=== PATIENT | female | born 1995 | race Caucasian/White ===

== ENCOUNTER 2017-08-15 19:05 | Inpatient (IN) | payer OTHER ==
[2017-08-15] VITALS (15 sets, daily range): BP systolic 113–135; BP diastolic 67–89; PULSE 86–110; RESP 18–20
[~2017-08-15] VITALS: Ht 157.5 cm; Wt 73.0 kg
[~2017-08-15 19:05] MED LIST changes: -IBUP-232 PO; -OXYC1TAB63 PO; -PERI PO
--- NOTE | 2017-08-15 19:39 | PD ---
HPI Chief Complaint contractions Date Seen: Aug 15, 2017 Time Seen: 19:38 Travel History International Travel<30 Days: No Contact w/Intl Traveler<30Days: Yes Name of Country Traveled to: STATIONED IN [facility] Known Affected Area: No History of Present Illness HPI 22 yo at 40/0 weeks gestation presenting with contractions. Started around midnight this morning and got progressively worse, causing her to seek care today 11 AM. At the time, she was not making very strong contractions had not progressed to the active phase of labor. She was discharged home with labor precautions. Her contractions had become much closer together increasing in intensity since discharge earlier this morning. She denies leakage of fluid. Endorses movement. Denies vaginal bleeding. History Past Medical History Medical History: Denies Significant Hx Obstetric History Obstetric History Past Surgical History Surgical History: No Previous Surgery Family History Family History: Negative Social History Alcohol Use: No Tobacco Use: No Substance Abuse: No Allergies-Medications (Allergen,Severity, Reaction): Coded Allergies: No Known Allergies (Unverified Adverse Reaction, Unknown, 08/08/17) Home Meds Active Scripts Multi-Vit/Iron-Folic [id number] C (Ferralet) 90-1-0.012-120 mg Tab, 90 CAP PO DAILY for anemia for 60 Days, #60 CAPLET 2 Refills Prov:Saulo Dickerson MD 06/25/17 W/O Vit A W/ Fe Fumar (Citranatal [place]) 27-1-260 Mg Cap, 1 CAP PO DAILY for Nutritional Supplement, #30 CAP 3 Refills Prov:Yadi Jameson CNM [facility] 03/19/17 W/O Vit A W/ Fe Fumar (Citranatal [place]) 27-1-260 Mg Cap, 1 CAP PO DAILY for Nutritional Supplement, #30 CAP 5 Refills Prov:Yadi Jameson CNM [facility] 02/06/17 Review of Systems Except as stated in HPI: all other systems reviewed are Neg Physical Exam Narrative GENERAL: Well-nourished, well-developed patient. SKIN: Warm and dry. HEAD: Normocephalic and atraumatic. EYES: No scleral icterus. No injection or drainage. ENT: No nasal drainage noted. Mucous membranes pink. Airway patent. CARDIOVASCULAR: Regular rate and rhythm without murmurs, gallops, or rubs. RESPIRATORY: Breath sounds equal bilaterally. No accessory muscle use. ABDOMEN/GI: Abdomen soft, non-tender, no rebound, no guarding GENITOURINARY: Cervix: midposition Dilation: 8-9 cm Effacement: 100 Presentation: vertex Membranes: intact; bulging Contractions: every 1-3 mins FHT's: Category: 1 Baseline: 140 Reactive: Y Variability: moderate Decels: N EXTREMITIES: No cyanosis or edema. NEUROLOGICAL: Awake and alert. Motor and sensory grossly within normal limits. Normal speech. Data Data Vital Signs Reviewed: Yes Orders Orders Ob (2e) Additional Admit Info (08/15/17 19:31) Admit To Inpatient (08/15/17 ) Code Status (08/15/17 19:36) Vital Signs (Adult) .Per protocol (08/15/17 19:36) Activity Oob Ad Ellyn (08/15/17 19:36) Heart (08/15/17 19:36) Amnioinfusion (08/15/17 19:36) Urinary Catheter Management .ONCE (08/15/17 19:36) Diet Liquid (08/16/17 Breakfast) Lactated Ringer's 1000 Ml Inj (Lr 1000 M (08/15/17 19:36) Lactated Ringer's 1000 Ml Inj (Lr 1000 M (08/15/17 19:36) Sodium Chlorid 0.9% 500 Ml Inj (Ns 500 M (08/15/17 19:45) Sodium Chlor 0.9% 1000 Ml Inj (Ns 1000 M (08/15/17 19:56) Lidocaine 1% Inj (50 Ml) (Xylocaine 1% I (08/15/17 19:45) Citric Acid-Sodium Citrate Liq (Bicitra (08/15/17 19:45) Ondansetron Inj (Zofran Inj) (08/15/17 19:45) Fentanyl Inj (Fentanyl Inj) (08/15/17 19:45) Fentanyl Inj (Fentanyl Inj) (08/15/17 19:45) Complete Blood Count With Diff (08/15/17 19:36) Hold Clot (08/15/17 19:36) Abo/Rh Blood Type (08/15/17 19:36) Urinalysis - C+S If Indicated (08/15/17 19:36) Drug Screen, Random Urine (08/15/17 19:36) Resp Oxygen Non Rebreathe Mask (08/15/17 ) ^ Epidural / Intrathecal Infus (08/15/17 19:36) Oxytocin 30 Units-500ml Premix (Pitocin (08/15/17 19:45) Lidocaine 1% Inj (50 Ml) (Xylocaine 1% I (08/15/17 19:45) Light Mineral Oil (Muri-Lube Oil) (08/15/17 19:45) Inpatient Certification (08/15/17 ) Specimen To Be Collected PRN (08/15/17 19:36) Specimen To Be Collected PRN (08/15/17 19:36) Group B Strep: Negative MDM Medical Record Reviewed: Yes Narrative Course / MDM [id number] at 40/0 weeks gestation presenting in labor #1 IUP Category 1 tracing, reassuring #2 active labor 8-9 cm with regular contractions - Admit to labor and delivery - Routine labor care - Continue to monitor #3 GBS negative No antibiotic ppx needed Otto Dwyer MD Aug 15, 2017 19:39
[2017-08-15] MEDS ORDERED: LIDOCAINE HCL 1% 50 ML VIAL I-DERMAL PRN (19:45)
[2017-08-15] MEDS ORDERED: SODIUM CHLORID 0.9% 500 ML INJ 500 ML IV PRN (19:45)
[2017-08-15] MEDS ORDERED: ONDANSETRON HCL 4 MG/2 ML VIAL IV PUSH PRN (19:45)
[2017-08-15] MEDS ORDERED: CITRIC ACID-SODIUM CITRATE LIQ 30 ML UDC PO SCH (19:45)
[2017-08-15] MEDS ORDERED: LIDOCAINE HCL 1% 50 ML VIAL INFIL PRN (19:45)
[2017-08-15] MEDS ORDERED: MINERAL OIL 10 ML VIAL TOPICAL PRN (19:45)
[2017-08-15] MEDS ORDERED: OXYTOCIN 30 UNITS-500ML PREMIX 500 ML IV ONE (19:45)
--- NOTE | 2017-08-15 19:51 | HHI.HP ---
History & Physical H&P HPI HPI Chief Complaint contractions Date Seen: Aug 15, 2017 Time Seen: 19:38 Travel History International Travel<30 Days: No Contact w/Intl Traveler<30Days: Yes Name of Country Traveled to: STATIONED IN [facility] Known Affected Area: No History of Present Illness HPI 22 yo at 40/0 weeks gestation presenting with contractions. Started around midnight this morning and got progressively worse, causing her to seek care today 11 AM. At the time, she was not making very strong contractions had not progressed to the active phase of labor. She was discharged home with labor precautions. Her contractions had become much closer together increasing in intensity since discharge earlier this morning. She denies leakage of fluid. Endorses movement. Denies vaginal bleeding. History (Limited) History Past Medical History Medical History: Denies Significant Hx Obstetric History Obstetric History Past Surgical History Surgical History: No Previous Surgery Family History Family History: Negative Social History Alcohol Use: No Tobacco Use: No Substance Abuse: No Allergies-Medications Allergies-Medications (Allergen,Severity, Reaction): Coded Allergies: No Known Allergies (Unverified Adverse Reaction, Unknown, 08/08/17) Home Meds Active Scripts Multi-Vit/Iron-Folic [id number] C (Ferralet) 90-1-0.012-120 mg Tab, 90 CAP PO DAILY for anemia for 60 Days, #60 CAPLET 2 Refills Prov:Saulo Dickerson MD 06/25/17 W/O Vit A W/ Fe Fumar (Citranatal [place]) 27-1-260 Mg Cap, 1 CAP PO DAILY for Nutritional Supplement, #30 CAP 3 Refills Prov:Yadi Jameson CNMP 03/19/17 W/O Vit A W/ Fe Fumar (Citranatal [place]) 27-1-260 Mg Cap, 1 CAP PO DAILY for Nutritional Supplement, #30 CAP 5 Refills Prov:Yadi Jameson CNMP 02/06/17 ROS Review of Systems Except as stated in HPI: all other systems reviewed are Neg Physical Exam Physical Exam Narrative GENERAL: Well-nourished, well-developed patient. SKIN: Warm and dry. HEAD: Normocephalic and atraumatic. EYES: No scleral icterus. No injection or drainage. ENT: No nasal drainage noted. Mucous membranes pink. Airway patent. CARDIOVASCULAR: Regular rate and rhythm without murmurs, gallops, or rubs. RESPIRATORY: Breath sounds equal bilaterally. No accessory muscle use. ABDOMEN/GI: Abdomen soft, non-tender, no rebound, no guarding GENITOURINARY: Cervix: midposition Dilation: 8-9 cm Effacement: 100 Presentation: vertex Membranes: intact; bulging Contractions: every 1-3 mins FHT's: Category: 1 Baseline: 140 Reactive: Y Variability: moderate Decels: N EXTREMITIES: No cyanosis or edema. NEUROLOGICAL: Awake and alert. Motor and sensory grossly within normal limits. Normal speech. Data Data Data Vital Signs Reviewed: Yes Orders Orders Ob (2e) Additional Admit Info (08/15/17 19:31) Admit To Inpatient (08/15/17 ) Code Status (08/15/17 19:36) Vital Signs (Adult) .Per protocol (08/15/17 19:36) Activity Oob Ad Ellyn (08/15/17 19:36) Heart (08/15/17 19:36) Amnioinfusion (08/15/17 19:36) Urinary Catheter Management .ONCE (08/15/17 19:36) Diet Liquid (08/16/17 Breakfast) Lactated Ringer's 1000 Ml Inj (Lr 1000 M (08/15/17 19:36) Lactated Ringer's 1000 Ml Inj (Lr 1000 M (08/15/17 19:36) Sodium Chlorid 0.9% 500 Ml Inj (Ns 500 M (08/15/17 19:45) Sodium Chlor 0.9% 1000 Ml Inj (Ns 1000 M (08/15/17 19:56) Lidocaine 1% Inj (50 Ml) (Xylocaine 1% I (08/15/17 19:45) Citric Acid-Sodium Citrate Liq (Bicitra (08/15/17 19:45) Ondansetron Inj (Zofran Inj) (08/15/17 19:45) Fentanyl Inj (Fentanyl Inj) (08/15/17 19:45) Fentanyl Inj (Fentanyl Inj) (08/15/17 19:45) Complete Blood Count With Diff (08/15/17 19:36) Hold Clot (08/15/17 19:36) Abo/Rh Blood Type (08/15/17 19:36) Urinalysis - C+S If Indicated (08/15/17 19:36) Drug Screen, Random Urine (08/15/17 19:36) Resp Oxygen Non Rebreathe Mask (08/15/17 ) ^ Epidural / Intrathecal Infus (08/15/17 19:36) Oxytocin 30 Units-500ml Premix (Pitocin (08/15/17 19:45) Lidocaine 1% Inj (50 Ml) (Xylocaine 1% I (08/15/17 19:45) Light Mineral Oil (Muri-Lube Oil) (08/15/17 19:45) Inpatient Certification (08/15/17 ) Specimen To Be Collected PRN (08/15/17 19:36) Specimen To Be Collected PRN (08/15/17 19:36) Group B Strep: Negative MDM MDM Medical Record Reviewed: Yes Narrative Course / MDM [id number] at 40/0 weeks gestation presenting in labor #1 IUP Category 1 tracing, reassuring #2 active labor 8-9 cm with regular contractions - Admit to labor and delivery - Routine labor care - Continue to monitor #3 GBS negative No antibiotic ppx needed Otto Dwyer MD Aug 15, 2017 19:51
[2017-08-15] MEDS ORDERED: SODIUM CHLOR 0.9% 1000 ML INJ 1,000 ML IV PRN (19:56)
[2017-08-15 20:05] LABS: BILIRUBIN, URINE NEG (NEG); BLOOD, URINE SMALL (NEG); GLUCOSE,URINE NEG (NEG); KETONE, URINE NEG (NEG); MUCUS URINE FEW /lpf (OCC); NITRITE,URINE NEG (NEG); PH, URINE 7.5 (5.0-8.5); SQUAMOUS EPITHELIAL CELL URINE 3 /hpf (0-5); URINE COLOR YELLOW (YELLW/STRAW); URINE LEUKOCYTE ESTERASE NEG (NEG)
[2017-08-15 20:09] LABS: BASOPHIL % 0.2 % (0.0-2.0); EOSINOPHIL % 0.3 % (0.0-4.0); HEMATOCRIT 37.1 % (35.0-46.0); HEMOGLOBIN 12.3 GM/DL (11.6-15.3); LYMPH % 15.8 % (9.0-44.0); LYMPHOCYTE # 1.4 TH/MM3 (1.0-4.8); MEAN CELL VOLUME 77.4 FL (80.0-100.0); MEAN CORPUSCULAR HEMOGLOBIN 25.6 PG (27.0-34.0); MEAN CORPUSCULAR HGB CONC 33.1 % (32.0-36.0); MEAN PLATELET VOLUME 8.2 FL (7.0-11.0); MONO % 6.9 % (0.0-8.0); MONOCYTE # 0.6 TH/MM3 (0-0.9); NEUT % 76.8 % (16.0-70.0); PLATELET COUNT 181 TH/MM3 (150-450); RED BLOOD COUNT 4.79 MIL/MM3 (4.00-5.30); RED CELL DISTRIBUTION WIDTH 18.3 % (11.6-17.2); WHITE BLOOD COUNT 9.1 TH/MM3 (4.0-11.0)
--- NOTE | 2017-08-15 20:41 | PD.LABORPN ---
Subjective Subjective Patient doing well. Contractions painful. Objective Objective Pelvic Exam: Cervix: midposition Dilatation: 9-10 cm Effacement: 100% Station: -2 Presentation: vertex Membranes: AROM Uterine Contractions: regular every 1-3 mins FHT's: Category: 1 Baseline: 140 Reactive: Y Variability: moderate Decels: N Pt started active labor?: Yes Medical induction of labor?: No Artificial rupture of membrane: Yes Artificial ROM date: Aug 15, 2017 Artifical ROM time: 20:39 Assessment/Plan Assessment and Plan 22 yo at 40/0 weeks in labor AROM performed with clear fluid Continue routine labor care GBS negative Category 1 tracing, reassuring Otto Dwyer MD Aug 15, 2017 20:41
[2017-08-15] MEDS: LACTATED RINGER'S 1000 ML INJ 1,000 ML IV PRN ×2 (22:23→23:57)
[2017-08-15] MEDS: LACTATED RINGER'S 1000 ML INJ 1,000 ML IV SCH (22:23)
[2017-08-15] MEDS ORDERED: fentaNYL 2MCG-BUPIV 0.125% INJ 100 ML ONE (23:25)
[2017-08-16] VITALS (58 sets, daily range): BP systolic 74–140; BP diastolic 34–92; PULSE 88–158; RESP 16–18; TEMP 98.4–100.5; O2SAT 98
[2017-08-16] MEDS ORDERED: NO SYSTEM NARCOTICS PRN
[2017-08-16] MEDS ORDERED: fentaNYL 2MCG-BUPIV 0.125% 100 ML EPIDURAL SCH
[2017-08-16] MEDS ORDERED: DO NOT ADMINISTER ANTICOAGULANTS PRN
[2017-08-16] MEDS ORDERED: ePHEDrine/NS 25 MG/5 ML SYRINGE IV PUSH PRN (00:30)
[2017-08-16] MEDS ORDERED: OXYTOCIN 30 UNITS-500ML PREMIX 500 ML IV PRN (01:30)
--- NOTE | 2017-08-16 05:06 | PD.LABORPN ---
Subjective Subjective Resting comfortably in bed. No concerns. Objective Vital Signs Vital Signs Date Time Temp Pulse Resp B/P (MAP) Pulse Ox O2 Delivery O2 Flow Rate FiO2 08/16/17 04:00 114 08/16/17 04:00 105/63 (77) 08/16/17 03:45 16 08/16/17 03:30 116 08/16/17 03:30 108/64 (79) 08/16/17 03:15 16 08/16/17 03:15 113 92/58 (69) 08/16/17 03:00 95/59 (71) 08/16/17 03:00 111 08/16/17 02:45 100/52 (68) 08/16/17 02:45 113 08/16/17 02:30 108/66 (80) 08/16/17 02:30 101 08/16/17 02:15 107 08/16/17 02:15 89/47 (61) 08/16/17 02:08 98.7 08/16/17 02:00 101 08/16/17 02:00 92/44 (60) 08/16/17 01:45 114 16 08/16/17 01:30 118/62 (80) 08/16/17 01:30 118 08/16/17 01:15 16 08/16/17 01:15 103 08/16/17 01:15 105/62 (76) 08/16/17 01:00 106/51 (69) 08/16/17 01:00 98 08/16/17 00:45 106/62 (77) 08/16/17 00:45 119 08/16/17 00:45 16 08/16/17 00:30 107 110/57 (74) 08/16/17 00:15 18 08/16/17 00:15 116 107/61 (76) 08/16/17 00:05 102 08/16/17 00:00 119/65 (83) 08/15/17 23:59 20 08/15/17 23:57 118/68 (85) 08/15/17 23:57 110 08/15/17 23:55 110 08/15/17 23:54 123/71 (88) 08/15/17 23:51 121/67 (85) 08/15/17 23:50 99 08/15/17 23:48 125/69 (87) 08/15/17 23:46 98 113/82 (92) 08/15/17 23:42 103 08/15/17 23:42 122/81 (95) 08/15/17 23:41 20 08/15/17 23:40 86 08/15/17 23:36 114/89 (97) 08/15/17 22:35 103 135/85 (102) 08/15/17 22:24 18 08/15/17 21:21 20 Objective Pelvic Exam: Cervix: midposition Dilatation: 8 Effacement: 80-90 Station: -2 Presentation: Vertex Membranes: AROM Uterine Contractions: Regular every 2-4 mins FHT's: Category: 1 Baseline: 140 Reactive: Y Variability: moderate Decels: N Pt started active labor?: Yes Medical induction of labor?: No Artificial rupture of membrane: Yes Artificial ROM date: Aug 15, 2017 Artifical ROM time: 20:39 Assessment/Plan Assessment and Plan 22 yo in labor GBS negative s/p AROM did not progress --> Pitocin augmentation started at ~0200 Now making cervical change Continue to monitor. If progression slows place IUPC to ensure adequate contractions dw Otto Mendoza MD Aug 16, 2017 05:06
[2017-08-16] MEDS: LACTATED RINGER'S 1000 ML INJ 1,000 ML IV SCH (06:30)
[2017-08-16] MEDS: LACTATED RINGER'S 1000 ML INJ 1,000 ML IV PRN (09:10)
--- NOTE | 2017-08-16 10:07 | PD.LABORPN ---
Subjective Subjective Patient is doing well. Is feeling the need to push. Current temp is 100.5. Objective Vital Signs Vital Signs Date Time Temp Pulse Resp B/P (MAP) Pulse Ox O2 Delivery O2 Flow Rate FiO2 08/16/17 09:45 100.5 18 08/16/17 09:30 112 108/65 (79) 08/16/17 09:04 16 08/16/17 09:00 123 105/55 (72) 08/16/17 08:43 16 08/16/17 08:30 144 128/84 (99) 08/16/17 08:15 99.1 16 08/16/17 08:00 126 116/80 (92) 08/16/17 07:31 158 118/34 (62) 08/16/17 07:30 16 08/16/17 07:00 118 109/55 (73) 08/16/17 06:30 111 111/62 (78) 08/16/17 06:29 16 08/16/17 06:15 98.9 16 08/16/17 06:00 121 103/59 (74) 08/16/17 05:45 16 08/16/17 05:30 128 92/59 (70) 08/16/17 05:15 16 08/16/17 05:00 127 74/36 (49) 08/16/17 04:30 96/59 (71) 08/16/17 04:30 120 08/16/17 04:15 98.4 08/16/17 04:07 16 08/16/17 04:00 114 08/16/17 04:00 105/63 (77) 08/16/17 03:45 16 08/16/17 03:30 116 08/16/17 03:30 108/64 (79) 08/16/17 03:15 16 08/16/17 03:15 113 92/58 (69) 08/16/17 03:00 95/59 (71) 08/16/17 03:00 111 08/16/17 02:45 100/52 (68) 08/16/17 02:45 113 08/16/17 02:30 108/66 (80) 08/16/17 02:30 101 08/16/17 02:15 107 08/16/17 02:15 89/47 (61) 08/16/17 02:08 98.7 08/16/17 02:00 101 08/16/17 02:00 92/44 (60) Objective Pelvic Exam: Cervix: complete Dilatation: 10 Effacement: 100 Station: 1 Presentation: vertex Membranes: AROM Uterine Contractions: present FHT's: Category: 1 Baseline: 150s-160s Reactive: yes Variability: moderate Decels: a few early decelerations Pt started active labor?: Yes Medical induction of labor?: No Artificial rupture of membrane: Yes Artificial ROM date: Aug 15, 2017 Artifical ROM time: 20:39 Assessment/Plan Assessment and Plan 22 yo at 40/1 weeks in labor GBS negative s/p AROM Pitocin augmentation started at ~0200 Cervix is now complete- anticipate vaginal delivery Pt now has a mild temperature at 100.5, showing signs of early chorioamnionitis -Started Ampicillin 2g q6h and Gentamicin 120mg loading dose, then 80mg q8h Maura Brooks Dr., MD R1 Aug 16, 2017 10:07
[2017-08-16] MEDS: AMPICILLIN INJ 2,000 MG in SODIUM CHLORIDE 0.9% INJ 100 ML IV SCH ×3 (10:42→22:56)
[2017-08-16] MEDS ORDERED: ACETAMINOPHEN 325 MG TAB PO PRN ×2 (10:45→13:15)
[2017-08-16] MEDS ORDERED: GENTAMICIN INJ 120 MG in SODIUM CHLORIDE 0.9% INJ 100 ML IV ONE (11:00)
[2017-08-16] MEDS ORDERED: LIDOCAINE HCL 1% PF 5 ML AMPULE ONE (12:19)
[2017-08-16] MEDS ORDERED: MISOPROSTOL 200 MCG TAB ONE (12:32)
[2017-08-16] MEDS ORDERED: METHYLERGONOVINE MALEATE 0.2 MG/ML VIAL ONE (12:33)
--- NOTE | 2017-08-16 13:13 | PD.OB.DELI ---
Weeks gestation: 40 Pt started active labor?: Yes Active labor start date: Aug 15, 2017 Active labor start time: 19:00 Medical induction of labor?: No Artificial rupture of membrane: Yes Artificial ROM date: Aug 15, 2017 Artifical ROM time: 20:39 Anesthesia: Epidural, Lidocaine local to perineum Episiotomy: Right mediolateral Vaginal Delivery: Normal Presentation: Occiput posterior Nuchal Cord: x2 Delayed cord clamping (45 sec): No : Female Delivery date: Aug 16, 2017 Delivery time: 12:20 One Minute : 7 Five Minute : 8 Weight: 8#3oz. Placenta: Spontaneous delivery, Intact, 3 vessel cord, Cord pH (7.26) Laceration: Episiotomy (R mediolateral), Vaginal laceration (L sidewall abrasion), 1 deg (L labial) Repair: Chromic interrupted, Chromic running Estimated blood loss: 500 Additional Information See separate note Nicole Epperson MD Aug 16, 2017 13:13
--- NOTE | 2017-08-16 13:13 | HHI.PR ---
Subjective Remarks Delivery Note The patient had a protracted labor course complicated by chorioamnionitis but eventually progressed to complete/complete/+1 and commenced maternal expulsive efforts. The heart rate remained overall reassuring throughout. The patient had an extremely edematous and somewhat short perineum. The decision was made to cut a right mediolateral episiotomy due to the concern for an extensive laceration due to significantly edematous and somewhat short perineum. After obtaining patient consent, adequate anesthesia was confirmed and a right mediolateral episiotomy was cut. The vertex delivered atraumatically with significant caput noted. A double nuchal cord was reduced. The anterior shoulder delivered spontaneously and atraumatically followed by spontaneous and atraumatic delivery of the remainder of the . The was placed on maternal abdomen and the cord doubly clamped and cut. The was taken to the warmer where the was crying vigorously by 26 seconds of life. A cord pH was obtained with results of 7.26. Cord blood was obtained for the nursery. The placenta delivered spontaneously and appeared to be intact. A placental culture was obtained and the placenta will be sent for pathological evaluation. The right mediolateral episiotomy was repaired with 2-0 chromic with excellent hemostasis and cosmesis. A left vaginal sidewall abrasion was noted and was over stitched with 3-0 chromic with excellent hemostasis. Rectal examination was negative and the patient received Cytotec 1000 mcg rectally. A left first-degree labial laceration was noted and reduced repaired with 3-0 chromic in a running fashion. Excellent hemostasis and cosmesis were noted. EBL 500 cc. Apgars 7/8. Weight 8 lbs. 3 oz. All sponge lap and needle counts were correct 2. I performed the entire delivery and repair. Objective Vital Signs Date Time Temp Pulse Resp B/P (MAP) Pulse Ox O2 Delivery O2 Flow Rate FiO2 08/16/17 13:00 110 122/79 (93) 08/16/17 12:30 120 123/71 (88) 08/16/17 11:39 18 08/16/17 11:00 18 08/16/17 10:57 144 128/69 (88) 08/16/17 10:00 133 117/81 (93) 08/16/17 09:45 100.5 18 08/16/17 09:30 112 108/65 (79) 2/2/18 09:04 16 2/2/18 09:00 123 105/55 (72) 2//18 08:43 16 2//18 08:30 144 128/84 (99) 2/18 08:15 99.1 16 2/2/18 08:00 126 116/80 (92) 2/18 07:31 158 118/34 (62) 218 07:30 16 2//18 07:00 118 109/55 (73) 2/18 06:30 111 111/62 (78) 218 06:29 16 2//18 06:15 98.9 16 2/18 06:00 121 103/59 (74) 218 05:45 16 2/18 05:30 128 92/59 (70) 218 05:15 16 08/16/17 05:00 127 74/36 (49) 218 04:30 96/59 (71) 2 04:30 120 2//18 04:15 98.4 2//18 04:07 16 2/18 04:00 114 2//18 04:00 105/63 (77) 218 03:45 16 2//18 03:30 116 2//18 03:30 108/64 (79) 218 03:15 16 2//18 03:15 113 92/58 (69) 218 03:00 95/59 (71) 2/18 03:00 111 2//18 02:45 100/52 (68) 2/18 02:45 113 2/2/18 02:30 108/66 (80) 2//18 02:30 101 2//18 02:15 107 2//18 02:15 89/47 (61) 2/18 02:08 98.7 2/2/18 02:00 101 2//18 02:00 92/44 (60) 2/18 01:45 114 16 2//18 01:30 118/62 (80) 218 01:30 118 2//18 01:15 16 08/16/17 01:15 103 08/16/17 01:15 105/62 (76) 08/16/17 01:00 106/51 (69) 08/16/17 01:00 98 08/16/17 00:45 106/62 (77) 08/16/17 00:45 119 08/16/17 00:45 16 08/16/17 00:30 107 110/57 (74) 08/16/17 00:15 18 08/16/17 00:15 116 107/61 (76) 08/16/17 00:05 102 08/16/17 00:00 119/65 (83) 08/15/17 23:59 20 08/15/17 23:57 118/68 (85) 08/15/17 23:57 110 08/15/17 23:55 110 08/15/17 23:54 123/71 (88) 08/15/17 23:51 121/67 (85) 08/15/17 23:50 99 08/15/17 23:48 125/69 (87) 08/15/17 23:46 98 113/82 (92) 08/15/17 23:42 103 08/15/17 23:42 122/81 (95) 08/15/17 23:41 20 08/15/17 23:40 86 08/15/17 23:36 114/89 (97) 08/15/17 22:35 103 135/85 (102) 08/15/17 22:24 18 08/15/17 21:21 20 08/15/17 20:30 20 Result Diagram: 08/15/17 Nicole Briones MD Aug 16, 2017 13:13
[2017-08-16] MEDS ORDERED: ONDANSETRON ODT 4 MG TAB PO PRN (13:15)
[2017-08-16] MEDS ORDERED: ALUMINUM/MAGNESIUM/SIMETH 30 ML CUP PO PRN (13:15)
[2017-08-16] MEDS ORDERED: OXYTOCIN 30 UNITS-500ML PREMIX 500 ML IV SCH (13:15)
[2017-08-16] MEDS ORDERED: oxyCODONE/ACETAMINOPHEN 5 MG/325 MG TAB PO PRN (13:15)
[2017-08-16] MEDS ORDERED: IBUPROFEN 800 MG TAB PO PRN (13:15)
[2017-08-16] MEDS ORDERED: SODIUM CHLORIDE 0.9% FLUSH 10 ML FLUSH IV FLUSH PRN (13:15)
[2017-08-16] MEDS ORDERED: BENZOCAINE 20% TOPICAL SPRAY 60 ML CAN TOPICAL PRN (13:15)
[2017-08-16] MEDS ORDERED: ZOLPIDEM TARTRATE 5 MG TAB PO PRN (13:15)
[2017-08-16] MEDS ORDERED: WITCH HAZEL 50%/GLYCERIN 12.5% 40 PAD JAR TOPICAL PRN (13:15)
[2017-08-16] MEDS: IBUPROFEN 600 MG TAB PO PRN (14:23)
[2017-08-16] MEDS ORDERED: GENTAMICIN INJ 180 MG in SODIUM CHLORIDE 0.9% INJ 100 ML IV ONE (15:30)
[2017-08-16] MEDS ORDERED: DIPHTH/TETANUS/ACEL PERTUSSIS (BOOSTER) 0.5 ML VIAL/PFS IM ONE (16:00)
[2017-08-16] MEDS ORDERED: MEASLES, MUMPS, RUBELLA VACCINE 0.5 ML VIAL SQ ONE (16:00)
[2017-08-16] MEDS: METHYLERGONOVINE MALEATE 0.2 MG TAB PO SCH ×2 (16:34→22:30)
[2017-08-16] MEDS: oxyCODONE/ACETAMINOPHEN 5 MG/325 MG TAB PO PRN (17:56)
[2017-08-16] MEDS ORDERED: GENTAMICIN INJ 80 MG in SODIUM CHLORIDE 0.9% INJ 100 ML IV SCH (18:00)
[2017-08-16] MEDS ORDERED: SODIUM CHLORIDE 0.9% FLUSH 10 ML FLUSH IV FLUSH SCH (21:00)
[2017-08-17] MEDS: DOCUSATE SODIUM 50 MG/SENNA 8.6 MG TAB PO PRN ×2 (02:10→20:47)
[2017-08-17] MEDS: oxyCODONE/ACETAMINOPHEN 5 MG/325 MG TAB PO PRN ×2 (02:10→20:47)
[2017-08-17] MEDS: IBUPROFEN 600 MG TAB PO PRN ×3 (02:11→23:21)
[2017-08-17] MEDS: METHYLERGONOVINE MALEATE 0.2 MG TAB PO SCH (04:37)
[2017-08-17] MEDS: AMPICILLIN INJ 2,000 MG in SODIUM CHLORIDE 0.9% INJ 100 ML IV SCH ×4 (04:37→23:08)
--- NOTE | 2017-08-17 06:08 | HHI.OB ---
Subjective Post Day: 1 Remarks day #1. AFVSS overnight. Pain well-controlled on medication, she does have swelling from the episiotomy, labial, and vaginal laceration. Lochia < a period. Denies dysuria. No breast tenderness. She is feeding the baby via breast. Appetite good. No nausea or vomiting. + flatus. Negative bowel movement. Ambulating well. Denies calf pain, shortness of breath, or chest pain. Otherwise, she is doing well this morning and has no other complaints. Objective Vitals/I&O Vital Signs Date Time Temp Pulse Resp B/P (MAP) Pulse Ox O2 Delivery O2 Flow Rate FiO2 08/16/17 19:37 98.7 89 16 116/72 (87) 98 08/16/17 14:49 104 130/82 (98) 08/16/17 14:45 91 08/16/17 14:30 102 131/91 (104) 08/16/17 14:15 108 18 139/92 (108) 08/16/17 14:00 118 140/70 (93) 08/16/17 14:00 18 08/16/17 13:45 88 18 130/82 (98) 08/16/17 13:31 104 135/88 (104) 08/16/17 13:21 100.4 08/16/17 13:20 18 08/16/17 13:15 103 135/66 (89) 08/16/17 13:05 18 08/16/17 13:00 110 122/79 (93) 08/16/17 12:30 120 123/71 (88) 08/16/17 11:39 18 08/16/17 11:00 18 08/16/17 10:57 144 128/69 (88) 08/16/17 10:00 133 117/81 (93) 08/16/17 09:45 100.5 18 08/16/17 09:30 112 108/65 (79) 08/16/17 09:04 16 08/16/17 09:00 123 105/55 (72) 08/16/17 08:43 16 08/16/17 08:30 144 128/84 (99) 08/16/17 08:15 99.1 16 08/16/17 08:00 126 116/80 (92) 08/16/17 07:31 158 118/34 (62) 08/16/17 07:30 16 08/16/17 07:00 118 109/55 (73) 08/16/17 06:30 111 111/62 (78) 08/16/17 06:29 16 08/16/17 06:15 98.9 16 Objective Remarks GENERAL: Well-nourished, well-developed patient. CARDIOVASCULAR: Regular rate and rhythm without murmurs, gallops, or rubs. RESPIRATORY: Breath sounds equal bilaterally. No accessory muscle use. ABDOMEN/GI: Abdomen soft, non-tender. Fundus: Firm, mildly tender at umbilicus. GENITOURINARY: Light to moderate bleeding. EXTREMITIES: No cyanosis or edema, non-tender, without signs of DVT. Medications and IVs Current Medications Medications (Trade) Dose Ordered Sig/Capo Route Start Time Stop Time Status Last Admin (Xylocaine 1% Inj (50 ml)) 0.1 ml UNSCH X1 PRN I-DERMAL 08/15/17 19:45 08/18/17 19:44 (Bicitra Liq) 30 ml SPECIFICATIONS CHECKER PO 08/15/17 19:45 08/19/17 19:44 (Zofran Inj) 4 mg Q6H PRN IV PUSH 08/15/17 19:45 (Xylocaine 1% Inj (50 ml)) 10 ml UNSCH X1 PRN INFIL 08/15/17 19:45 08/17/17 19:44 (Muri-Lube Oil) 10 ml UNSCH PRN TOPICAL 08/15/17 19:45 Oxytocin 500 ml @ 0 mls/hr TITRATE PRN IV 08/16/17 01:30 08/16/17 02:30 Ampicillin Sodium 2000 mg/Sodium Chloride 100 ml @ 400 mls/hr Q6H IV 08/16/17 11:00 08/17/17 04:37 (Tylenol) 650 mg Q4H PRN PO 08/16/17 10:45 08/16/17 10:44 (NS Flush) 2 ml BID IV FLUSH 08/16/17 21:00 (NS Flush) 2 ml UNSCH PRN IV FLUSH 08/16/17 13:15 (Tylenol) 650 mg Q4H PRN PO 08/16/17 13:15 (Percocet 5-325 Mg) 1 tab Q4H PRN PO 08/16/17 13:15 08/17/17 02:10 (Percocet 5-325 Mg) 2 tab Q4H PRN PO 08/16/17 13:15 (Americaine 20% Top Spr) 1 spray Q4H PRN TOPICAL 08/16/17 13:15 08/16/17 16:57 (Tucks Pads) 1 applic QID PRN TOPICAL 08/16/17 13:15 08/16/17 16:57 (Desiree-Colace) 2 tab Q12H PRN PO 08/16/17 13:15 08/17/17 02:10 (Ambien) 5 mg HS PRN PO 08/16/17 13:15 (Mag-Al Plus Susp Liq) 15 ml Q8H PRN PO 08/16/17 13:15 (Zofran Odt) 4 mg Q6H PRN PO 08/16/17 13:15 (Motrin) 600 mg Q6HR PRN PO 08/16/17 14:00 08/17/17 02:11 Gentamicin Sulfate 300 mg/ Sodium Chloride 107.5 ml @ 200 mls/hr DAILY@1300 IV 08/17/17 13:00 Assessment/Plan Assessment and Plan 22y/o female who is PPD#1 s/p vaginal delivery -Continue routine care -Motrin and Percocet PRN for pain -Pericolase PRN for constipation -Encouraged OOB. Advised pelvic rest for 6 wks -Will need a follow-up appointment within 6 wks for post- check -Re: ctrl - would like Nexplanon -Continue amp and gent for 1 more day. Gentamicin once daily dosing Discussed with Dr. Epperson Discharge Planning Discharge home in 1-2 days Marcella Kline MD R2 Aug 17, 2017 06:08
[2017-08-17 08:00] VITALS: BP 146/95; PULSE 66; RESP 18; TEMP 98.3; O2SAT 100
[2017-08-17] MEDS ORDERED: METHYLERGONOVINE MALEATE 0.2 MG TAB PO SCH (12:00)
[2017-08-17] MEDS: GENTAMICIN INJ 300 MG in SODIUM CHLORIDE 0.9% INJ 100 ML IV SCH (12:30)
[2017-08-17] MEDS ORDERED: MEASLES, MUMPS, RUBELLA VACCINE 0.5 ML VIAL SQ ONE (17:45)
[2017-08-17] MEDS ORDERED: DIPHTH/TETANUS/ACEL PERTUSSIS (BOOSTER) 0.5 ML VIAL/PFS IM ONE (17:45)
[2017-08-17 20:00] VITALS: BP 115/58; PULSE 65; RESP 16; O2SAT 99
[2017-08-18] MEDS: AMPICILLIN INJ 2,000 MG in SODIUM CHLORIDE 0.9% INJ 100 ML IV SCH ×2 (05:25→10:40)
[2017-08-18] MEDS: IBUPROFEN 600 MG TAB PO PRN ×2 (05:26→11:29)
[2017-08-18] MEDS: oxyCODONE/ACETAMINOPHEN 5 MG/325 MG TAB PO PRN ×2 (05:26→11:28)
[2017-08-18] MEDS ORDERED: IBUP-232 PO (08:18)
[2017-08-18] MEDS ORDERED: PERI PO (08:18)
[2017-08-18] MEDS ORDERED: OXYC1TAB63 PO (08:18)
--- NOTE | 2017-08-18 08:24 | HHI.DCPOC ---
Discharge Care Plan Diagnosis: (1) Vaginal delivery (2) 40 weeks gestation of Report Symptoms to Your Doctor -Temperature above 100.5 degrees -Redness, of incision or excessive or foul smelling drainage -Unusual pain or calf pain -Increased vaginal bleeding -Painful or difficulty urinating -Feelings of extreme sadness or anxiety after 2 weeks Goals to Promote Your Health * To prevent worsening of your condition and complications * To maintain your health at the optimal level Directions to Meet Your Goals Take your medications as prescribed Follow your dietary instruction Follow activity as directed Ensure plenty of rest for recovery Drink fluids for hydration Keep your appointments as scheduled Take your immunizations and boosters as scheduled If your symptoms worsen call your PCP, if no PCP go to Urgent Care Center or Emergency Room Smoking is Dangerous to Your Health. Avoid second hand smoke Call the 24-hour crisis hotline for domestic abuse at Marcella Kline MD R2 Aug 18, 2017 08:24
--- NOTE | 2017-08-18 08:36 | HHI.OB ---
Subjective Post Day: 2 Remarks day #2. AFVSS overnight. Pain well-controlled on medication. Lochia < a period. Denies dysuria. No breast tenderness. She is feeding the baby via breast. Appetite good. No nausea or vomiting. + flatus. Negative bowel movement. Ambulating well. Denies calf pain, shortness of breath, or chest pain. Otherwise, she is doing well this morning and has no other complaints. (Eko,Marcella Villareal MD R2) Remarks Patient seen and evaluated with resident under direct supervision, agree with assessment and plan. (Rocky Thapa MD) Objective Vitals/I&O Vital Signs Date Time Temp Pulse Resp B/P (MAP) Pulse Ox O2 Delivery O2 Flow Rate FiO2 08/17/17 20:00 65 16 115/58 (77) 99 Objective Remarks GENERAL: Well-nourished, well-developed patient. CARDIOVASCULAR: Regular rate and rhythm without murmurs, gallops, or rubs. RESPIRATORY: Breath sounds equal bilaterally. No accessory muscle use. ABDOMEN/GI: Abdomen soft, non-tender. Fundus: Firm, mildly tender at umbilicus. GENITOURINARY: Light to moderate bleeding. EXTREMITIES: No cyanosis or edema, non-tender, without signs of DVT. Medications and IVs Current Medications Medications (Trade) Dose Ordered Sig/Capo Route Start Time Stop Time Status Last Admin (Xylocaine 1% Inj (50 ml)) 0.1 ml UNSCH X1 PRN I-DERMAL 08/15/17 19:45 08/18/17 19:44 (Bicitra Liq) 30 ml MACHINE DES[employer] TEACHER PO 08/15/17 19:45 08/19/17 19:44 (Zofran Inj) 4 mg Q6H PRN IV PUSH 08/15/17 19:45 (Muri-Lube Oil) 10 ml UNSCH PRN TOPICAL 08/15/17 19:45 Oxytocin 500 ml @ 0 mls/hr TITRATE PRN IV 08/16/17 01:30 08/16/17 02:30 Ampicillin Sodium 2000 mg/Sodium Chloride 100 ml @ 400 mls/hr Q6H IV 08/16/17 11:00 08/18/17 05:25 (Tylenol) 650 mg Q4H PRN PO 08/16/17 10:45 08/16/17 10:44 (NS Flush) 2 ml BID IV FLUSH 08/16/17 21:00 (NS Flush) 2 ml UNSCH PRN IV FLUSH 08/16/17 13:15 (Tylenol) 650 mg Q4H PRN PO 08/16/17 13:15 (Percocet 5-325 Mg) 1 tab Q4H PRN PO 08/16/17 13:15 08/18/17 05:26 (Percocet 5-325 Mg) 2 tab Q4H PRN PO 08/16/17 13:15 (Americaine 20% Top Spr) 1 spray Q4H PRN TOPICAL 08/16/17 13:15 08/16/17 16:57 (Tucks Pads) 1 applic QID PRN TOPICAL 08/16/17 13:15 08/16/17 16:57 (Desiree-Colace) 2 tab Q12H PRN PO 08/16/17 13:15 08/17/17 20:47 (Ambien) 5 mg HS PRN PO 08/16/17 13:15 (Mag-Al Plus Susp Liq) 15 ml Q8H PRN PO 08/16/17 13:15 (Zofran Odt) 4 mg Q6H PRN PO 08/16/17 13:15 (Motrin) 600 mg Q6HR PRN PO 08/16/17 14:00 08/18/17 05:26 Gentamicin Sulfate 300 mg/ Sodium Chloride 107.5 ml @ 200 mls/hr DAILY@1300 IV 08/17/17 13:00 08/17/17 12:30 (Marcella Kline MD R2) Assessment/Plan Assessment and Plan 22y/o female who is PPD#2 s/p vaginal delivery -Continue routine care -Motrin and Percocet PRN for pain -Pericolase PRN for constipation -Encouraged OOB. Advised pelvic rest for 6 wks -Will need a follow-up appointment within 6 wks for post- check -Re: ctrl - would like Nexplanon -Last doses of ampicillin and gentamicin today Discussed with Dr. Thapa Discharge Planning Discharge home today (Marcella Kline MD R2) Marcella Kline MD R2 Aug 18, 2017 08:36 Rocky Thapa MD Aug 23, 2017 10:32
[2017-08-18 09:30] VITALS: BP 106/74; PULSE 80; RESP 16; TEMP 97.6
[2017-08-18] MEDS: DOCUSATE SODIUM 50 MG/SENNA 8.6 MG TAB PO PRN (11:29)
[2017-08-18] MEDS: GENTAMICIN INJ 300 MG in SODIUM CHLORIDE 0.9% INJ 100 ML IV SCH (12:20)
== END 2017-08-18 14:06 | disposition home or self-care (01) | DRG 775 ==
LOC: HOBED 19:05 → H2EA 19:33 → H1EA 08-16 15:11
PROVIDERS: ADMIT Obstetrics & Gynecology Obstetrics; ATTEND Obstetrics & Gynecology Obstetrics
PROC: 10907ZC Drainage of Amniotic Fluid, Therapeutic from Products of Conception, Via Natural or Artificial Opening (ICD-10-PCS; 2017-08-15)
PROC: 10E0XZZ Delivery of Products of Conception, External Approach (ICD-10-PCS; principal; 2017-08-16)
PROC: 0W8NXZZ Division of Female Perineum, External Approach (ICD-10-PCS; 2017-08-16)
PROC: 0HQ9XZZ Repair Perineum Skin, External Approach (ICD-10-PCS; 2017-08-16)
DX: O63.9 Long labor, unspecified (principal); O41.1230 Chorioamnionitis, third trimester, not applicable or unspecified; O70.0 First degree perineal laceration during delivery; Z3A.40 40 weeks gestation of pregnancy; Z37.0 Single live birth
CPT/HCPCS: 80307; 81001; 82805; 85025; 86900; 86901; 87070; 87205; 88307; 90707; 90715; J0290; J1580; J2210; J2590; J7120

== ENCOUNTER → 2017-08-15 | Emergency (ER) | payer OTHER ==
[~2017-08-15] MED LIST: FERRTAB2 PO; IBUP-232 PO; OXYC1TAB63 PO; PERI PO; PREN1CAP7 PO
--- NOTE | 2017-08-15 11:07 | PD ---
HPI Chief Complaint Contractions Date Seen: Aug 15, 2017 Time Seen: 11:04 Travel History International Travel<30 Days: No Contact w/Intl Traveler<30Days: No Known Affected Area: No History of Present Illness HPI Patient is 22-year-old who is at 40 weeks today complains of contractions since midnight. Her cervix was checked last 1 week ago and was closed at that time patient began to experience irregular contractions since midnight and became a little bit more regular around 5:00 in the morning but are still mild. Patient denies vaginal bleeding but she had a small amount of mucousy discharge 2 hours ago. Patient is experienced an uncomplicated antepartum course getting her care at [facility]. She is group B strep negative Weeks Gestation: 40 Para: 0 : 1 History Past Medical History Medical History: Denies Significant Hx Past Surgical History Surgical History: No Previous Surgery Family History Family History: Negative Social History Alcohol Use: No Tobacco Use: No Substance Abuse: No Allergies-Medications (Allergen,Severity, Reaction): Coded Allergies: No Known Allergies (Unverified Adverse Reaction, Unknown, 08/08/17) Home Meds Active Scripts Multi-Vit/Iron-Folic [id number]-[id number] C (Ferralet) 90-1-0.012-120 mg Tab, 90 CAP PO DAILY for anemia for 60 Days, #60 CAPLET 2 Refills Prov:Saulo Dickerson MD 06/25/17 W/O Vit A W/ Fe Fumar (Citranatal [place]) 27-1-260 Mg Cap, 1 CAP PO DAILY for Nutritional Supplement, #30 CAP 3 Refills Prov:Yadi Jameson CNM [facility] 03/19/17 W/O Vit A W/ Fe Fumar (Citranatal [place]) 27-1-260 Mg Cap, 1 CAP PO DAILY for Nutritional Supplement, #30 CAP 5 Refills Prov:Yadi Jameson CNM [facility] 02/06/17 Review of Systems Except as stated in HPI: all other systems reviewed are Neg Physical Exam Narrative GENERAL: Well-nourished, well-developed patient. SKIN: Warm and dry. HEAD: Normocephalic and atraumatic. EYES: No scleral icterus. No injection or drainage. ENT: No nasal drainage noted. Mucous membranes pink. Airway patent. NECK: Supple, trachea midline. No JVD. CARDIOVASCULAR: Regular rate and rhythm without murmurs, gallops, or rubs. RESPIRATORY: Breath sounds equal bilaterally. No accessory muscle use. ABDOMEN/GI: Abdomen soft, non-tender, bowel sounds present, no rebound, no guarding Gravid to [38-] weeks size Fundal Height: [-] GENITOURINARY: External Genitalia: intact and normal in appearance BUS glands: [-] Normal Cervix: [-] Posterior Dilatation: [-] 1 Effacement: [-] 80 Station: [-] -3 Presentation: [-] Vertex Membranes: [intact or ruptured] intact Uterine Contractions: [-] Irregular every 3-10 minutes FHT's: Category: [-] 1 Baseline: [-] 140 Reactive: [-] Moderate Variability: [-] Moderate Decels: [-] Absent EXTREMITIES: No cyanosis or edema. BACK: Nontender without obvious deformity. No CVA tenderness. NEUROLOGICAL: Awake and alert. Motor and sensory grossly within normal limits. Five out of 5 muscle strength in all muscle groups. Normal speech. Update: No cervical change after ambulation for 1.5 hours. Data Data Vital Signs Reviewed: Yes Group B Strep: Negative MDM Medical Record Reviewed: Yes Plan 22 yo at 40 weeks gestation, false labor Follow up with office tomorrow as scheduled Consider 41 weeks induction. Diagnosis Diagnosis: Primary Impression: 40 weeks gestation of Additional Impression: False labor after 37 completed weeks of gestation Disposition: 01 DISCHARGE HOME Lauren Martinez MD Aug 15, 2017 11:07
== END | disposition home or self-care (01) ==
LOC: HOBED 10:14
DX: O47.1 False labor at or after 37 completed weeks of gestation (principal); Z3A.40 40 weeks gestation of pregnancy
CPT/HCPCS: 59025